=== PATIENT | female | born 1980 | race Two or more races ===

== ENCOUNTER 2024-10-19 02:28 | Outpatient (CLI) | payer OTHER ==
[~2024-10-19] VITALS: Ht 175.3 cm; Wt 111.1 kg
[2024-10-19 01:39] VITALS: BP 122/77
[2024-10-19] MEDS ORDERED: PRENATAL TABLE1 EAC1 PO (02:30)
[2024-10-19] MEDS ORDERED: SYNTHROID175 MCG PO (02:31)
[2024-10-19 02:45] VITALS: BP 122/77
[2024-10-19] MEDS ORDERED: FAMOtidine 20 MG TABLET PO NR (02:45)
== END 2024-10-19 05:45 | disposition left against medical advice (07) ==
LOC: OBS/DEL 02:28
PROVIDERS: ATTEND Obstetrics & Gynecology
DX: O26.893 Other specified pregnancy related conditions, third trimester (principal); O36.8130 Decreased fetal movements, third trimester, not applicable or unspecified; Z3A.30 30 weeks gestation of pregnancy

== ENCOUNTER → 2024-10-19 | Emergency (ER) | payer OTHER ==
[~2024-10-19] MED LIST: PRENATAL TABLE1 EAC1 PO; SYNTHROID175 MCG PO
== END | disposition left against medical advice (07) ==
LOC: ER 00:47
DX: Z53.21 Procedure and treatment not carried out due to patient leaving prior to being seen by health care provider (principal)